=== PATIENT | female | born 1995 | race Two or more races ===

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

== ENCOUNTER → 2017-01-21 | Outpatient (CLI) | payer OTHER ==
[2017-01-21 12:36] LABS: BASOPHIL % 0.4 % (0-2); PLATELET COUNT 216 x10^3mcL (130-400); RED CELL DISTRIBUTION WIDTH 13.8 % (11.5-14.5)
[2017-01-21 13:00] LABS: ALBUMIN 4.4 g/dL (3.4-5.0); ALKALINE PHOSPHATASE 75 U/L (46-116); ALT/SGPT 25 U/L (14-59); AST/SGOT 16 U/L (15-37); BILIRUBIN TOTAL 0.9 mg/dL (0.20-1.00); CALCIUM 9.2 mg/dL (8.5-10.1); CARBON DIOXIDE 30.5 mmol/L (21-32); CHLORIDE SERUM 105 mmol/L (98-107); CREATININE SERUM 0.9 mg/dL (0.6-1.0); GFR1 > 60 mL/min; GLUCOSE SERUM 91 mg/dL (74-106); HDL CHOLESTEROL 59 mg/dL (40-60); POTASSIUM SERUM 3.8 mmol/L (3.5-5.1); SODIUM SERUM 140 mmol/L (136-145); TRIGLYCERIDES 55 mg/dL (<150)
[2017-01-21 13:07] LABS: CHOLESTEROL 118 mg/dL (<200); TOTAL PROTEIN, SERUM 8.5 g/dL (6.4-8.2)
[2017-01-21 13:11] LABS: FREE T4 1.12 ng/dL (0.76-1.46); FREE THYROXINE INDEX 3.4 ug/dL (1.4-4.5); T4(THYROXINE) 9.2 ug/dL (4.7-13.3)
[2017-01-21 13:14] LABS: T3 TOTAL 0.9 ng/mL
[2017-01-22 04:28] LABS: RAPID PLASMA REAGIN Non Reactive (Non Reactive)
== END | disposition home or self-care (01) ==
LOC: LB 11:51
PROVIDERS: Family Medicine
DX: N92.1 Excessive and frequent menstruation with irregular cycle (principal); R53.83 Other fatigue; Z11.3 Encounter for screening for infections with a predominantly sexual mode of transmission
CPT/HCPCS: 84439; 86694; 87491; 87591

== ENCOUNTER → 2020-04-26 | Outpatient (CLI) | payer OTHER ==
[2020-04-27 08:06] LABS: RAPID PLASMA REAGIN Non Reactive (Non Reactive)
== END | disposition home or self-care (01) ==
LOC: LB 12:43
DX: Z11.3 Encounter for screening for infections with a predominantly sexual mode of transmission (principal)
CPT/HCPCS: 87491; 87591

== ENCOUNTER → 2020-08-06 | Outpatient (CLI) | payer OTHER | END | disposition home or self-care (01) | LOC: LB 15:37 | DX: N90.89 Other specified noninflammatory disorders of vulva and perineum (principal) | CPT/HCPCS: 86694 ==